=== PATIENT | male | born 1955 | race African-American/Black ===

== ENCOUNTER 2021-08-13 07:40 | Outpatient (CLI) | payer OTHER | END 2021-08-13 07:41 | disposition home or self-care (01) | LOC: CT 07:40 | PROVIDERS: ATTEND Internal Medicine | DX: D64.9 Anemia, unspecified (principal); R93.3 Abnormal findings on diagnostic imaging of other parts of digestive tract; K76.9 Liver disease, unspecified; N28.89 Other specified disorders of kidney and ureter; K57.30 Diverticulosis of large intestine without perforation or abscess without bleeding; M47.816 Spondylosis without myelopathy or radiculopathy, lumbar region | CPT/HCPCS: 74170; 82565 ==

== ENCOUNTER 2022-11-02 07:21 | Outpatient (CLI) | payer OTHER ==
[2022-11-02] MEDS ORDERED: Iopamidol 370 76% 100 ML VIAL ONE (09:42)
== END 2022-11-02 07:22 | disposition home or self-care (01) ==
LOC: BICCT 07:21
DX: R93.2 Abnormal findings on diagnostic imaging of liver and biliary tract (principal); K76.89 Other specified diseases of liver; N28.1 Cyst of kidney, acquired; N20.0 Calculus of kidney
CPT/HCPCS: 74170; 82565; Q9967